=== PATIENT | male | born 1955 | race Caucasian/White ===

== ENCOUNTER → 2017-10-18 08:41 | Outpatient (CLI) | payer MEDICARE, SELFPAY ==
--- NOTE | 2017-10-18 | NVE_ITS ---
Venous Exam Indications: 729.5 Pain in limb. IMPRESSIONS 1. There is no evidence of significant Reflux. 2. No evidence of deep or superficial vein thrombosis involving the right lower extremity History: Risk factors: Recent trauma. Pt fell 10 days ago and injured right leg. Right lower extremity venous duplex evaluation. Doppler flow study including spectral analysis, color and mercado scale imaging. Location: Vascular laboratory. Patient status: Outpatient. CRITICAL FINDINGS - Reported to: Leilani - Read back and verified. - 10/18/17 - 929 - Neg for DVT. Large fluid filled area. Incidental findings: Questionable muscle strain, tear, trauma is noted incidentally on the right. Pt has a large fluid filled area on the medial aspect of the knee that extends into the calf. An enlargedlymph is noted incidentally on the right. 3.9x1.3. Tables: Venous flow and imaging: + +-------+ + Location Overall Flow properties + +-------+ + Right common femoral Patent Normal phasicity; spontaneous; normal augmentation; compressible + +-------+ + Right saphenofemoral junction Patent Compressible + +-------+ + Right profunda femoral Patent Compressible + +-------+ + Right femoral Patent Normal phasicity; spontaneous; normal augmentation; compressible + +-------+ + Right greater saphenous Patent Normal phasicity; spontaneous; normal augmentation; compressible + +-------+ + Right popliteal Patent Normal phasicity; spontaneous; normal augmentation; compressible + +-------+ + Right posterior tibial Patent Compressible + +-------+ + Right peroneal Patent Compressible + +-------+ + Right gastrocnemius Patent Compressible + +-------+ + Right soleal Patent Compressible + +-------+ + (Report amended ) Electronically signed by: Judd Torres [id number]
--- NOTE | 2017-10-18 08:55 | XR_ITS ---
XR knee RT 3V HISTORY: Right knee pain ITS.REASON: RT KNEE PAIN ORDERING PHYSICIAN: Leilani Robins PATIENT AGE: 62 years COMPARISON: None FINDINGS: Moderate osteoarthritic changes involving all 3 compartments with decrease in the joint space, sclerosis, and osteophyte formation. No fracture or dislocation. No lytic or blastic change. The joint space narrowing is greater at the lateral compartment and patellofemoral joint. IMPRESSION: Moderate osteoarthritis of the right knee
== END ==
PROVIDERS: Family Provider Internal Medicine Adolescent Medicine; PCP Internal Medicine Adolescent Medicine; Visit Provider Nurse Practitioner Family
DX: M79.604 Pain in right leg (principal); M79.89 Other specified soft tissue disorders; M25.561 Pain in right knee
CPT/HCPCS: 73562; 93971

== ENCOUNTER → 2018-04-07 11:29 | Outpatient (CLI) | payer MEDICARE, SELFPAY ==
--- NOTE | 2018-04-07 11:38 | XR_ITS ---
XR chest 2V HISTORY: ITS.REASON: COUGH ORDERING PHYSICIAN: Josue Avina MD PATIENT AGE: 62 years COMPARISON: None FINDINGS: The cardiomediastinal silhouette and pulmonary vascularity are within normal limits. The lungs are clear without infiltrates, suspicious nodules, or pleural effusions. No acute bony abnormalities. There is ankylosis of the thoracic spine IMPRESSION: No acute finding
--- NOTE | 2018-04-07 11:38 | XR_ITS ---
XR knee standing BI HISTORY: Knee pain ITS.REASON: ARTHRITIS ORDERING PHYSICIAN: Josue Avina MD PATIENT AGE: 62 years COMPARISON: 10/18/2017 FINDINGS: Standing AP views are performed of both knees. The patellofemoral joint is not adequately evaluated without a lateral view. Right knee: There are moderate osteoarthritic changes of the lateral compartment mild osteoarthritic changes of the medial compartment. There is hypertrophic change of the proximal tibia laterally and the interspinous region of the proximal tibia Left knee: Moderate osteoarthritic changes medial compartment and mild osteoarthritic change of the lateral compartment IMPRESSION: Bilateral osteoarthritis of the knees as described above Cannot adequately evaluate the patellofemoral joint
--- NOTE | 2018-04-07 11:40 | MM_ITS ---
MM Dig mamm BI DX w/CAD, US breast RT complete INDICATION: Palpable mass in the right breast with tenderness ORDERING PHYSICIAN: Josue Avina MD PATIENT AGE: 62 years COMPARISON: None TECHNIQUE: Standard images performed along with spot compression views of the right breast and right breast ultrasound FINDINGS: Mammogram: Asymmetric increased density is present in the retroareolar region on the right felt to be related to fibroglandular tissue.. There is some coarse calcification in the superior aspect of the right breast near the nipple. Benign-appearing nodular densities noted laterally may be due to overlapping vessel. There is slight increased density in the left retroareolar region well. No malignant appearing mass or malignant appearing microcalcifications. Right breast ultrasound: 2.4 cm area of lobulated decreased echogenicity in the right retroareolar region. There is good through transmission of sound. Consistent with gynecomastia. Similar but smaller area noted on the left IMPRESSION: Bilateral gynecomastia right more extensive than left. No evidence of malignancy BI-RADS Category: 2 Benign Finding(s) Follow-up recommended as clinically warranted (A letter has been sent to the patient regarding results of the study.)
== END ==
PROVIDERS: PCP Internal Medicine Adolescent Medicine; Visit Provider Internal Medicine Adolescent Medicine
DX: N62 Hypertrophy of breast (principal); R05 Cough; M17.0 Bilateral primary osteoarthritis of knee
CPT/HCPCS: 71046; 73565; 76641; 77066

== ENCOUNTER → 2018-04-27 12:42 | Outpatient (CLI) | payer MEDICARE, SELFPAY ==
--- NOTE | 2018-04-27 12:44 | XR_ITS ---
XR knee LT 4V, XR knee RT 4V Ordering Physician: Claire Adkins MD Patient Age: 62 years: Male HISTORY: ITS.REASON: B/L Knee pain Bilateral knee pain most pronounced at left knee. HISTORY of previous surgery right lower leg. Ligament right lower leg repaired Technique: Weightbearing AP, lateral and Venegas views with sunrise patellar view performed. At both right and left knees. COMPARISON : September 2017 right knee is well as 04/07/2018 bilateral knee. AP view ========= RIGHT KNEE Joint space narrowing at lateral compartment more so than medial compartment. This is most pronounced on the standing Venegas view where there is near [id number] appearance Slight narrowing of the lateral compartment. Mild tricompartmental marginal osteophytes. Scant increased joint fluid at suprapatellar bursa. Small joint effusion. The narrowing at lateral more so than medial compartment appears similar to slightly progressive since September IMPRESSION: Right knee 1. Moderate pronounced osteoarthritis. Most pronounced & Marked narrowing at lateral compartment... LEFT KNEE. Moderate arthritic changes left knee. Narrowing of medial compartment most of the lateral compartment.. Tricompartmental Marginal osteophytes. At the left knee moderately pronounced narrowing at medial compartment but more so than lateral compartment but (. Not as severe narrowing at medial compartment as seen at lateral compartment of contralateral right knee however on these standing views) . Patellofemoral relationships appear satisfactory with marginal hypertrophy about the patellofemoral joint. This includes some hypertrophic changes about the femoral trochlear groove Small joint effusion left knee suprapatella bursa region which is more evident on left than right IMPRESSION....LEFT knee Moderate arthritic changes at the left knee. Narrowing most evident at the medial compartment at left knee. Overall arthritic changes are not quite as pronounced on left left as right.- But there is a more evident left knee joint effusion... . There may be slight additional hypertrophic changes about the normal aspect of patellofemoral joint on left versus right as well
== END ==
PROVIDERS: PCP Internal Medicine Adolescent Medicine; Visit Provider Orthopaedic Surgery
DX: M25.561 Pain in right knee (principal); M25.562 Pain in left knee
CPT/HCPCS: 73564

== ENCOUNTER → 2018-07-24 12:16 | Outpatient (CLI) | payer MEDICARE, SELFPAY ==
--- NOTE | 2018-07-24 12:27 | NVE_ITS ---
Venous Exam Indications: 729.81 Swelling of limb. IMPRESSIONS 1. No evidence of deep or superficial vein thrombosis involving the right lower extremity 2. 4.9 cm cystic lesion seen right popliteal fossa. 6.0 cm cystic lesion proximal medial right calf. Right lower extremity venous duplex evaluation. Doppler flow study including spectral analysis, color and mercado scale imaging. Location: Vascular laboratory. Patient status: Outpatient. CRITICAL FINDINGS - Reported to: Tha Tomlinson - 07/24/2018 - 12:50pm - Neg. for DVT. Fluid collection seen right pop.fossa and prox. medial calf may represent Davison's cysts . Consider MRI for confirmation Tables: Venous flow and imaging: + +-------+ + Location Overall Flow properties + +-------+ + Right common femoral Patent Normal phasicity; spontaneous; normal augmentation; compressible + +-------+ + Right saphenofemoral junction Patent Compressible + +-------+ + Right profunda femoral Patent Compressible + +-------+ + Right femoral Patent Normal phasicity; spontaneous; normal augmentation; compressible + +-------+ + Right greater saphenous Patent Normal phasicity; spontaneous; normal augmentation; compressible + +-------+ + Right popliteal Patent Normal phasicity; spontaneous; normal augmentation; compressible + +-------+ + Right posterior tibial Patent Compressible + +-------+ + Right peroneal Patent Compressible + +-------+ + Right gastrocnemius Patent Compressible + +-------+ + Right soleal Patent Compressible + +-------+ + (Report amended ) Electronically signed by: Judd Torres [id number]
== END ==
PROVIDERS: PCP Internal Medicine Adolescent Medicine; Visit Provider Internal Medicine Adolescent Medicine
DX: R60.1 Generalized edema (principal)
CPT/HCPCS: 93971

== ENCOUNTER → 2018-11-08 10:11 | Outpatient (CLI) | payer MEDICARE, SELFPAY ==
[2018-11-08 14:12] LABS: Blood Urea Nitrogen 18 mg/dL (7-18); Calcium 9.4 mg/dL (8.5-10.1); Chloride 100 mmol/L (98-107); Potassium 4.1 mmoL/L (3.5-5.1); Sodium 136 mmol/L (136-145); Total Protein,Serum 6.9 gm/dL (6.4-8.2)
[2018-11-08 14:14] LABS: Alanine Aminotransferase 30 U/L (12-78); Albumin/Globulin Ratio 0.8 (1.1-1.8); Alkaline Phosphatase 98 U/L (46-116); Anion Gap 14.1 mEq/L (5-15); Aspartate Amino Transferase 24 U/L (15-37); Bilirubin,Total 0.6 mg/dL (0.2-1.0); Carbon Dioxide 26 mmol/L (21.0-32.0); Estimated Glomerular Filt Rate 68 ml/min (>60); GFR (African American) 82 ML/MIN (>60); Globulin 3.9 gm/dl (1.3-3.2); Glucose 107 mg/dL (74-106); Uric Acid 5.7 mg/dL (2.6-7.2)
[2018-11-08 14:42] LABS: Basophils # 0.1 K/mm3 (0-0.2); Basophils % 0.8 % (0.1-2.0); Eosinophils # 0.2 K/mm3 (0.0-0.4); Eosinophils % 4.1 % (0.1-12.0); Hematocrit 33.1 % (42.0-52.0); Hemoglobin 10.4 g/dL (14.1-18.0); Lymphocytes # 0.9 K/mm3 (0.7-4.5); Lymphocytes % 16.8 % (10-50); Mean Corpuscular HGB Conc 31.3 g/dL (31.8-35.4); Mean Corpuscular Hemoglobin 28.6 pg (27.0-31.2); Mean Corpuscular Volume 91.4 fl (80-94); Monocytes # 0.5 K/mm3 (0.1-1.0); Monocytes % 9.1 % (1.7-9.3); Neutrophils # 3.8 K/mm3 (1.8-7.8); Neutrophils % 69.2 % (37.0-80.0); Platelet Count 395 K/mm3 (142-424); Red Blood Count 3.62 M/mm3 (4.60-6.20); Red Cell Distribution Width 14.1 % (11.5-17.5); White Blood Count 5.5 K/mm3 (4.8-10.8)
[2018-11-10 06:36] LABS: Anti-Cyclic Citrullinated Pept 232 units (0-19)
[2018-11-13 15:17] LABS: Anti-Centromere B Antibodies <0.2 AI (0.0-0.9); Anti-Jo-1 <0.2 AI (0.0-0.9); Anti-Smith Antibody <0.2 AI (0.0-0.9); Antichromatin Antibodies 0.2 AI (0.0-0.9); Antiscleroderma-70 Antibodies <0.2 AI (0.0-0.9); RNP Antibodies <0.2 AI (0.0-0.9); Sjogren's Anti-SS-A <0.2 AI (0.0-0.9); Sjogren's Anti-SS-B <0.2 AI (0.0-0.9)
[2018-11-13 16:40] LABS: Anti-DNA (DS) Ab Qn <1 IU/mL (0-9)
== END ==
PROVIDERS: PCP Internal Medicine Adolescent Medicine; Visit Provider Internal Medicine Adolescent Medicine
DX: M1A.09X0 Idiopathic chronic gout, multiple sites, without tophus (tophi) (principal); M19.90 Unspecified osteoarthritis, unspecified site
CPT/HCPCS: 36415; 80053; 84550; 85025; 86038; 86200; 86225; 86235; 86431

== ENCOUNTER 2020-08-20 18:15 | Emergency (ER) | payer MEDICARE, SELFPAY ==
[2020-08-20 18:17] VITALS: BP 145/71; PULSE 68; RESP 18; TEMP 36.6; O2SAT 98; BMI 37.3
--- NOTE | 2020-08-20 18:21 | HMH.EDGENADL ---
ED Disposition Clinical Impression: Lower extremity edema Disposition: Home, Self-Care Condition on Discharge: Good Additional Instructions: Report back tomorrow at 8 AM to have ultrasound study done officially. Take antibiotic as prescribed. Elevate leg at night and continue to range her leg as tolerated. Please follow-up with your doctor tomorrow noon to get results from study done tomorrow morning. If any worsening redness, pain, decreased range of motion, worsening swelling, fever/chills, generalized malaise, or other new concerning symptoms please immediately report back to our ER. Prescriptions: Clindamycin HCl 450 mg PO Q8 7 Days #63 cap Transmission Status: Pending to [facility] Referrals: Josue Avina MD [Primary Care Provider] - - Critical Care Critical Care Time: No Attestation: On , the high probability of a clinically significant, sudden or life threatening deterioration of the following system(s) required my full and direct attention, intervention and personal management. The time I documented below is in addition to time spent performing reported procedures but includes the following listed in this critical care notation. Medical Decision Making - Medical Records Medical records reviewed: Yes: I reviewed the patient's medical records. - Roque Inquiry Pt receiving controlled substance: No Vital Signs: 08/20/20 18:17 Temperature 97.8 F Temperature Source Oral Pulse Rate [Right] 68 Respiratory Rate 18 Blood Pressure [Right Arm] 145/71 H Blood Pressure Mean [Right Arm] 95 02 Sat by Pulse Oximetry 98 Medical Decision Narrative: Patient presents to the emergency department with left lower extremity erythema. His surgical site looks well he has no decreased range of motion to his left knee or left ankle. Differential diagnosis does include DVT versus cellulitis versus postop pain. I am concerned due to the swelling. No obvious DVT based on quick bedside ultrasound but formal ultrasound ordered and I instructed patient to report back to our hospital tomorrow morning for formal ultrasound. He agrees. No anticoagulation will be initiated. I am concerned he may have cellulitis that is nonpurulent. He is allergic to Keflex and clindamycin will be prescribed. First dose given in the ER without difficulty. Again, no systemic signs of illness. I urged him to follow-up with his PCP tomorrow to confirm results of ultrasound that will be completed tomorrow morning. He will take antibiotics as directed. Return immediately to the emergency department if increased erythema, increased pain, decreased range of motion to left lower extremity, increased swelling, or any other new concerning symptoms. Assessment: Left lower extremity swelling and erythema Recent left knee arthroscopy Dispo: Home with follow-up General Adult HPI - General Stated complaint: sURG [id number] KNEE REPLACEMENT,bLOOK CLOT Time Seen by Provider: 08/20/20 18:20 - History of Present Illness HPI narrative: 65-year-old male history of hypertension and recent left knee arthroscopy presenting due to left chan redness. Patient states ever since several days ago when he had his procedure he has noticed some mild swelling noted to his left lower leg and some redness that started 1 or 2 days ago to his chan. No posterior calf pain. No fever/chills. No systemic signs of illness. No decreased range of motion at his ankle or knee. He spoke to his PCP today and there is concern he may have developed a DVT. No history of DVT. - Related Data Home Medications Medication Instructions Recorded Confirmed atorvastatin 80 mg tablet 80 mg PO DAILY 05/21/20 05/21/20 bisoprolol fumarate 10 mg tablet 10 mg PO DAILY 05/21/20 05/21/20 hydrocodone 7.5 mg-acetaminophen tab PO 05/21/20 05/21/20 325 mg tablet Previous Rx's Medication Instructions Recorded allopurinol 300 mg tablet 300 mg PO DAILY #30 tab 05/01/18 levothy
[2020-08-20 19:44] VITALS: BP 159/76; PULSE 80; RESP 18; TEMP 36.8; O2SAT 99
== END 2020-08-20 19:46 | disposition home or self-care (01) ==
PROVIDERS: Emergency Provider Emergency Medicine; PCP Internal Medicine Adolescent Medicine
DX: R60.0 Localized edema (principal); Z96.652 Presence of left artificial knee joint; I10 Essential (primary) hypertension; E78.5 Hyperlipidemia, unspecified; Z88.1 Allergy status to other antibiotic agents; Z79.899 Other long term (current) drug therapy
CPT/HCPCS: 99281

== ENCOUNTER → 2020-08-21 09:47 | Outpatient (CLI) | payer MEDICARE, SELFPAY ==
--- NOTE | 2020-08-21 09:54 | CA_ITS ---
APPROVED REPORT Left Lower Extremity Venous Study for DVT. Senior Formulation Scientist: Marj Woo RVT Indications htn,hld,s/p lt knee replacement last week,bruising,reddness Risk Factors Post OP Vein Imaging CFV (L): compressive, spontaneous, phasic, augmentation FEM (L): compressive, spontaneous, phasic, augmentation POP (L): compressive, spontaneous, phasic, augmentation PTV (L): Compressible GSV (L): Compressible Peroneals (L):Compressible GAS (L): Compressible Findings Study suggests no evidence of DVT of the left lower extremity. Study suggests no evidence of SVT of the left lower extremity. Conclusion Study suggests no evidence of DVT of the left lower extremity. Study suggests no evidence of SVT of the left lower extremity. Electronically signed by : Judd Torres MD 08/21/2020 16:54:48
== END ==
PROVIDERS: PCP Internal Medicine Adolescent Medicine; Visit Provider Emergency Medicine
DX: R60.0 Localized edema (principal); M79.662 Pain in left lower leg
CPT/HCPCS: 93971

== ENCOUNTER 2020-09-25 10:00 | Outpatient (RCR) | payer MEDICARE, SELFPAY | END 2020-10-27 17:00 | disposition home or self-care (01) | LOC: PT.CARL 10:00 | PROVIDERS: PCP Internal Medicine Adolescent Medicine; Visit Provider Orthopaedic Surgery | DX: M25.562 Pain in left knee; Z96.652 Presence of left artificial knee joint | CPT/HCPCS: 97014; 97110; 97140; 97163; G0283 ==

== ENCOUNTER → 2020-09-30 20:12 | Outpatient (CLI) | payer MEDICARE, SELFPAY ==
[2020-09-30 20:27] LABS: Basophils # 0.1 K/mm3 (0-0.2); Basophils % 0.8 % (0.1-2.0); Eosinophils # 0.2 K/mm3 (0.0-0.4); Eosinophils % 3.2 % (0.1-12.0); Hematocrit 36.4 % (42.0-52.0); Lymphocytes # 1.3 K/mm3 (0.7-4.5); Mean Corpuscular HGB Conc 32.9 g/dL (31.8-35.4); Mean Corpuscular Volume 91.4 fl (80-94); Mean Platelet Volume 9.3 fl (7.4-10.4); Monocytes # 0.5 K/mm3 (0.1-1.0); Monocytes % 8.2 % (1.7-9.3); Neutrophils # 4.4 K/mm3 (1.8-7.8); Neutrophils % 67.8 % (37.0-80.0); Platelet Count 217 K/mm3 (142-424); Red Blood Count 3.99 M/mm3 (4.60-6.20); Red Cell Distribution Width 14.4 % (11.5-17.5); White Blood Count 6.5 K/mm3 (4.8-10.8)
[2020-09-30 20:53] LABS: Alanine Aminotransferase 16 U/L (12-78); Albumin/Globulin Ratio 1.3 (1.1-1.8); Alkaline Phosphatase 110 U/L (38-126); Anion Gap 12.5 mEq/L (5-15); Aspartate Amino Transferase 28 U/L (17-59); Bilirubin,Total 0.7 mg/dl (0.2-1.3); Blood Urea Nitrogen 19 mg/dl (9-20); Calcium 9.1 mg/dl (8.4-10.2); Carbon Dioxide 26 mmol/L (22.0-30.0); Chloride 105 mmol/L (98-107); Chol/HDL Ratio 3.3 (1-3.5); Cholesterol 174 mg/dl (140-200); Estimated Glomerular Filt Rate 55 ml/min (>60); GFR (African American) 67 ML/MIN (>60); Glucose 107 mg/dl (74-100); HDL Cholesterol 52 mg/dl (40-60); Potassium 4.5 mmoL/L (3.5-5.1); Sodium 139 mmol/L (136-145); Triglycerides 107 mg/dl (30-150); VLDL Cholesterol 21 mg/dL (0-40)
[2020-09-30 21:04] LABS: Direct LDL Cholesterol 90.38 mg/dL (100-129)
[2020-09-30 21:23] LABS: Thyroid Stimulating Hormone 3.03 uIU/mL (0.465-4.68)
== END ==
PROVIDERS: Visit Provider Internal Medicine Adolescent Medicine
DX: I10 Essential (primary) hypertension (principal); E78.5 Hyperlipidemia, unspecified; E03.9 Hypothyroidism, unspecified
CPT/HCPCS: 80053; 80061; 84443; 85025

== ENCOUNTER → 2021-02-11 08:06 | Outpatient (CLI) | payer MEDICARE, SELFPAY ==
[2021-02-11 08:23] LABS: Basophils # 0.1 K/mm3 (0-0.2); Basophils % 0.7 % (0.1-2.0); Eosinophils # 0.1 K/mm3 (0.0-0.4); Eosinophils % 1.8 % (0.1-12.0); Hematocrit 41.6 % (42.0-52.0); Hemoglobin 13.5 g/dL (14.1-18.0); Lymphocytes # 1.2 K/mm3 (0.7-4.5); Lymphocytes % 16.9 % (10-50); Mean Corpuscular HGB Conc 32.5 g/dL (31.8-35.4); Mean Corpuscular Hemoglobin 32.1 pg (27.0-31.2); Mean Corpuscular Volume 98.8 fl (80-94); Mean Platelet Volume 10.7 fl (7.4-10.4); Monocytes # 0.5 K/mm3 (0.1-1.0); Monocytes % 6.6 % (1.7-9.3); Neutrophils # 5.2 K/mm3 (1.8-7.8); Neutrophils % 74.1 % (37.0-80.0); Platelet Count 249 K/mm3 (142-424); Red Blood Count 4.21 M/mm3 (4.60-6.20); Red Cell Distribution Width 15.3 % (11.5-17.5)
[2021-02-11 10:15] LABS: Alanine Aminotransferase 22 U/L (12-78); Albumin Level 4.3 g/dl (3.5-5.0); Albumin/Globulin Ratio 1.3 (1.1-1.8); Alkaline Phosphatase 104 U/L (38-126); Anion Gap 15.3 mEq/L (5-15); Aspartate Amino Transferase 34 U/L (17-59); Blood Urea Nitrogen 18 mg/dl (9-20); Calcium 9.7 mg/dl (8.4-10.2); Carbon Dioxide 22 mmol/L (22.0-30.0); Chloride 105 mmol/L (98-107); Chol/HDL Ratio 3.5 (1-3.5); Cholesterol 191 mg/dl (140-200); Estimated Glomerular Filt Rate 67 ml/min (>60); GFR (African American) 81 ML/MIN (>60); Globulin 3.3 g/dL (1.3-3.2); Glucose 99 mg/dl (74-100); HDL Cholesterol 55 mg/dl (40-60); Potassium 4.3 mmoL/L (3.5-5.1); Sodium 138 mmol/L (136-145); Total Protein,Serum 7.6 g/dl (6.3-8.2); Triglycerides 230 mg/dl (30-150); Uric Acid 9.3 mg/dl (3.5-8.5); VLDL Cholesterol 46 mg/dL (0-40)
[2021-02-11 10:32] LABS: Direct LDL Cholesterol 81.29 mg/dL (100-129)
[2021-02-11 10:48] LABS: Thyroid Stimulating Hormone 2.86 uIU/mL (0.465-4.68)
== END ==
PROVIDERS: Visit Provider Internal Medicine Adolescent Medicine
DX: E78.5 Hyperlipidemia, unspecified (principal); E03.9 Hypothyroidism, unspecified; M1A.09X0 Idiopathic chronic gout, multiple sites, without tophus (tophi)
CPT/HCPCS: 80053; 80061; 84443; 84550; 85025

== ENCOUNTER → 2021-10-30 07:31 | Outpatient (CLI) | payer MEDICARE, SELFPAY ==
[2021-10-29 16:59] LABS: Chloride 102 mmol/L (98-107)
[2021-10-29 17:00] LABS: Potassium 4.3 mmoL/L (3.5-5.1); Sodium 135 mmol/L (136-145)
[2021-10-29 17:02] LABS: Alanine Aminotransferase 35 U/L (12-78); Albumin Level 3.7 g/dl (3.5-5.0); Alkaline Phosphatase 88 U/L (38-126); Aspartate Amino Transferase 35 U/L (17-59); Bilirubin,Total 0.3 mg/dl (0.2-1.3); Blood Urea Nitrogen 15 mg/dl (9-20); Estimated Glomerular Filt Rate 75 ml/min (>60); GFR (African American) 90 ML/MIN (>60)
[2021-10-29 17:03] LABS: Albumin/Globulin Ratio 1.2 (1.1-1.8); Anion Gap 13.3 mEq/L (5-15); Calcium 9.2 mg/dl (8.4-10.2); Carbon Dioxide 24 mmol/L (22.0-30.0); Glucose 129 mg/dl (74-100); Total Protein,Serum 6.7 g/dl (6.3-8.2)
[2021-10-29 17:31] LABS: Thyroid Stimulating Hormone 1.42 uIU/mL (0.465-4.68)
[2021-11-06 12:22] LABS: Testosterone, Total, LC/MS 297.7 ng/dL (264.0-916.0); Testosterone,Free 3.9 pg/mL (6.6-18.1)
[2021-11-11 00:55] LABS: 1,25 Dihydroxy Vitamin D 52 pg/mL (.); 1,25-Dihydroxy, Vitamin D-2 42 pg/mL (.); 1,25-Dihydroxy, Vitamin D-3 10 pg/mL (.)
== END ==
PROVIDERS: PCP Internal Medicine Adolescent Medicine; Visit Provider Internal Medicine Adolescent Medicine
DX: M06.9 Rheumatoid arthritis, unspecified (principal); I10 Essential (primary) hypertension; E29.1 Testicular hypofunction; E66.9 Obesity, unspecified; Z68.36 Body mass index [BMI] 36.0-36.9, adult
CPT/HCPCS: 80053; 82652; 84402; 84403; 84443

== ENCOUNTER → 2022-01-07 06:18 | Outpatient (CLI) | payer MEDICARE, SELFPAY ==
[2022-01-07 18:38] LABS: Basophils # 0.1 K/mm3 (0-0.2); Basophils % 1.7 % (0.1-2.0); Eosinophils # 0.2 K/mm3 (0.0-0.4); Eosinophils % 5.1 % (0.1-12.0); Hematocrit 37.8 % (42.0-52.0); Hemoglobin 12.7 g/dL (14.1-18.0); Lymphocytes # 0.9 K/mm3 (0.7-4.5); Lymphocytes % 30.4 % (10-50); Mean Corpuscular HGB Conc 33.6 g/dL (31.8-35.4); Mean Corpuscular Volume 92.2 fl (80-94); Mean Platelet Volume 10.4 fl (7.4-10.4); Monocytes # 0.3 K/mm3 (0.1-1.0); Monocytes % 9.6 % (1.7-9.3); Neutrophils # 1.7 K/mm3 (1.8-7.8); Neutrophils % 53.3 % (37.0-80.0); Platelet Count 158 K/mm3 (142-424); Red Cell Distribution Width 18.9 % (11.5-17.5); White Blood Count 3.1 K/mm3 (4.8-10.8)
[2022-01-07 18:43] LABS: Alanine Aminotransferase 30 U/L (12-78); Albumin Level 3.9 g/dl (3.5-5.0); Albumin/Globulin Ratio 1.4 (1.1-1.8); Alkaline Phosphatase 124 U/L (38-126); Anion Gap 14.4 mEq/L (5-15); Aspartate Amino Transferase 36 U/L (17-59); Bilirubin,Total 0.9 mg/dl (0.2-1.3); Blood Urea Nitrogen 22 mg/dl (9-20); Calcium 8.5 mg/dl (8.4-10.2); Carbon Dioxide 23 mmol/L (22.0-30.0); Chloride 104 mmol/L (98-107); Estimated Glomerular Filt Rate 55 ml/min (>60); GFR (African American) 67 ML/MIN (>60); Globulin 2.8 g/dL (1.3-3.2); Glucose 82 mg/dl (74-100); Potassium 4.4 mmoL/L (3.5-5.1); Sodium 137 mmol/L (136-145); Total Protein,Serum 6.7 g/dl (6.3-8.2)
[2022-01-07 18:59] LABS: Free Thyroxine Index 4.6 ug/dL (5.93-13.13); T4 (Thyroxine) 12.3 ug/dl (5.53-11.0); Triiodothryronine (T3) Uptake 37 % (23.5-40.5)
[2022-01-07 19:13] LABS: Thyroid Stimulating Hormone 3.48 uIU/mL (0.465-4.68)
[2022-01-12 10:17] LABS: Testosterone, Total, LC/MS 226.1 ng/dL (264.0-916.0); Testosterone,Free 3.4 pg/mL (6.6-18.1)
== END ==
PROVIDERS: PCP Internal Medicine Adolescent Medicine; Visit Provider Internal Medicine Adolescent Medicine
DX: E29.1 Testicular hypofunction (principal); E03.9 Hypothyroidism, unspecified; I10 Essential (primary) hypertension; Z79.899 Other long term (current) drug therapy
CPT/HCPCS: 80053; 84402; 84403; 84436; 84443; 84479; 85025

== ENCOUNTER 2022-06-15 06:34 | Day surgery (SDC) | payer MEDICARE, SELFPAY ==
[2022-06-10 13:34] VITALS: BMI 35.9
[2022-06-15 06:53] VITALS: BP 151/67; PULSE 63; RESP 18; TEMP 36.7; O2SAT 99
--- NOTE | 2022-06-15 07:07 | EXP.ANES.CKL ---
[facility] Disclaimer: The information contained in this section may have been updated after the patient was seen, as this information can be updated by other users. Medical History Androgen deficiency HLD (hyperlipidemia) Hypertension Hypothyroidism Rheumatoid arthritis Surgical History History of knee replacement Family History Other Family history of diabetes mellitus type I Social History Smoking Status: Never smoker alcohol intake: never substance use type: denies use current occupational status: retired Travel in the last 8 weeks: None household members: spouse caffeine: Yes household members: spouse current occupational status: retired Dietary Habits caffeine: Yes Tobacco Smoking Status: Never smoker Alcohol alcohol intake: current Substance Use substance use type: denies use [facility] Anesthesia Checklist Patient Identification Patient Identification: Arm Band and Verbal (Name & ) Structural Data Admitted From: Home Planned Operative Procedure/s: Colonoscopy Consent for Planned Operative Procedure(s) Verified: Yes NPO Status Verified Time NPO: 00:00 Airway Assessment C-Spine Mobility Assessed: Yes TMJ Mobility Assessed: Yes Dentition: Poor Dentition Neurological Assessment Level of Consciousness: Awake Hx Seizures: No Numbness or tingling in extremities: No Anesthesia Plan Anesthesia Risk discussed: Yes Anesthesia Plan: Verified ASA Class: II Anesthesia Type: MAC
[2022-06-15 07:22] VITALS: O2SAT 99
[2022-06-15 07:45] VITALS: BP 121/63; PULSE 60; RESP 15; TEMP 36.6; O2SAT 97
--- NOTE | 2022-06-15 07:45 | P.PCN_ITS ---
Procedure: Date: 06/15/22 Patient Date of :: 1955 Procedure Performed:: Colonoscopy Indications:: Screening Performing Provider:: Michael Ortiz MD Referring Provider:: . Sedation:: Monitored anesthesia care Procedure:: After informed consent was obtained the patient was taken to the endoscopy suite. Sedation ensued after the patient was transferred to the left lateral decubitus position. Pulse, blood pressure, and oxygen saturation were monitored throughout the procedure. Digital rectal exam revealed no significant abnormality. The colonoscope was placed in position. The entire colon was eval uated. The colonoscope was carefully removed and the patient was transferred to recovery in stable condition. Please see findings and specimens below for detail. Findings:: Bowel preparation relatively poor Specimens:: none Recommendations:: Repeat colonoscopy in 6-12 months with extended/alternate bowel preparation Complications:: Limited visualization secondary to poor bowel preparation Estimated blood obtained (mL): 0
[2022-06-15 07:55] VITALS: BP 105/63; PULSE 59; RESP 18; O2SAT 95
[2022-06-15 08:05] VITALS: BP 119/54; PULSE 58; RESP 17; O2SAT 98
[2022-06-15 08:10] VITALS: BP 120/62; PULSE 59; RESP 17; O2SAT 97
== END 2022-06-15 08:10 | disposition home or self-care (01) ==
PROVIDERS: PCP Internal Medicine Adolescent Medicine; Visit Provider Surgery
PROC: 0DJD8ZZ Inspection of Lower Intestinal Tract, Via Natural or Artificial Opening Endoscopic (ICD-10-PCS; principal; 2022-06-15 07:30)
DX: Z12.11 Encounter for screening for malignant neoplasm of colon (principal); K57.30 Diverticulosis of large intestine without perforation or abscess without bleeding; Z91.199 Patient's noncompliance with other medical treatment and regimen due to unspecified reason; Z79.899 Other long term (current) drug therapy
CPT/HCPCS: G0121